=== PATIENT | male | born 1970 | race Caucasian/White ===

== ENCOUNTER 2019-10-09 17:45 | Inpatient (IN) | payer OTHER ==
[~2019-10-09] VITALS: Ht 177.8 cm; Wt 84.1 kg
[2019-10-09 18:52] LABS: BASOPHILS % (AUTO) 0.7 % (0-1); EOSINOPHILS # (AUTO) 0.2 X10'3 (0-0.9); EOSINOPHILS % (AUTO) 4.1 % (0-6); HEMATOCRIT 41.7 % (42.0-52.0); HEMOGLOBIN 14.3 g/dl (14.0-17.9); LYMPHOCYTES # (AUTO) 1.8 X10'3 (1.1-4.8); LYMPHOCYTES % (AUTO) 32.2 % (21-51); MEAN CORPUSCULAR HEMOGLOBIN 30.9 PG (27.0-31.0); MEAN CORPUSCULAR HGB CONC 34.2 g/dL (33.0-36.5); MEAN CORPUSCULAR VOLUME 90.4 FL (78-98); MEAN PLATELET VOLUME 7.2 FL (7.4-10.4); MONOCYTES # (AUTO) 0.4 X10'3 (0-0.9); MONOCYTES % (AUTO) 6.6 % (2-12); NEUTROPHILS # (AUTO) 3.2 X10'3 (1.8-7.7); NEUTROPHILS % (AUTO) 56.4 % (42-75); PLATELET COUNT 278 X10'3 (140-440); RED BLOOD COUNT 4.61 X10'6 (4.70-6.10); RED CELL DISTRIBUTION WIDTH 12.7 % (11.5-14.5); WHITE BLOOD COUNT 5.7 X10'3 (4.5-11.0)
[2019-10-09 19:07] LABS: ALANINE AMINOTRANSFERASE 25 U/L (12-78); ALBUMIN 4.2 G/DL (3.4-5.0); ALBUMIN/GLOBULIN RATIO 1.1 (1.1-1.5); ALKALINE PHOSPHATASE 65 IU/L (46-116); ANION GAP 7 (8-16); ASPARTATE AMINO TRANSFERASE 24 U/L (10-37); BILIRUBIN,TOTAL 0.3 MG/DL (0.1-1.0); BLOOD UREA NITROGEN 16 MG/DL (7-18); BUN/CREATININE RATIO 14.5 (5.4-32.0); CALCIUM 9.6 MG/DL (8.5-10.1); CHLORIDE 103 MMOL/L (99-107); GLUCOSE 95 MG/DL (70-104); POTASSIUM 3.9 MMOL/L (3.5-5.1); SODIUM 137 MMOL/L (135-145); TOTAL PROTEIN 7.9 G/DL (6.4-8.2); eGFR 72 ML/MIN
[2019-10-09] MEDS ORDERED: iohexol 300mg/ml 100ml inj. ONE (20:52)
--- NOTE | 2019-10-09 21:04 | NUR ---
PT TO CT VIA WHEEL CHAIR WITH NETWORKER
[2019-10-09 21:08] LABS: CLARITY,URINE CLEAR (Clear); COLOR,URINE YELLOW (Yellow); GLUCOSE, URINE NEGATIVE (Neg); KETONES,URINE TRACE mg/dl (Neg); LEUKOCYTE ESTERASE ,URINE NEGATIVE (Neg); NITRITES, URINE NEGATIVE (Neg); OCCULT BLOOD,URINE NEGATIVE (Neg); PROTEIN,URINE NEGATIVE (Neg); UROBILINOGEN,URINE 0.2 E.U/dL (0.2-1.0)
[2019-10-09 21:13] LABS: UA COLLECTION TYPE CLN CATCH MIDSTREAM
[2019-10-09] MEDS ORDERED: potassium CL 10mEq/100ml bag 100 ML IV PRN ×2 (22:15)
[2019-10-09] MEDS ORDERED: potassium Cl 20 mEq SR tablet PO PRN ×2 (22:15)
[2019-10-09] MEDS ORDERED: mag hydrox/Alum hydrox/simeth 30ml oral suspension PO PRN (22:15)
[2019-10-09] MEDS ORDERED: ondansetron/PF 4mg/2ml inj IV PRN ×2 (22:15→22:55)
[2019-10-09] MEDS ORDERED: magnesium Cl slow-release 64mg tablet PO PRN (22:15)
[2019-10-09] MEDS ORDERED: magnesium 2GM in 50ml NS 50 ML IV PRN (22:15)
[2019-10-09] MEDS ORDERED: acetaminophen 325mg tablet PO PRN (22:15)
[2019-10-09] MEDS ORDERED: magnesium 4gm in 100ml NS 100 ML IV PRN (22:15)
[2019-10-09] MEDS ORDERED: magnesium hydroxide 30ml (MOM) UD suspension PO PRN (22:15)
[2019-10-09] MEDS: normal saline 1000ml 1,000 ML IV SCH (22:34)
[2019-10-09] MEDS ORDERED: ringers solution, lacted 1,000 ML IV SCH (22:52)
[2019-10-09] MEDS ORDERED: famotidine/PF 10 mg/ml inj IV ONE (22:53)
[2019-10-09] MEDS ORDERED: BUPIVAcaine/PF 2.5 mg/ml (0.25%) 30ml vial ONE (22:53)
[2019-10-09] MEDS ORDERED: morphine 4 MG/ML inj SYRINge IV PRN (22:55)
[2019-10-09] MEDS ORDERED: labetalol 20mg/4ml (5mg/ml) syringe IV PRN (22:55)
[2019-10-09] MEDS ORDERED: meperidine/PF 25mg/ml syringe IV PRN ×2 (22:55)
[2019-10-09] MEDS ORDERED: hydrALAZINE 20mg/ml inj. IV PRN (22:55)
[2019-10-09] MEDS ORDERED: morphine 2 MG/ML inj. syringe IV PRN (22:55)
[2019-10-09] MEDS ORDERED: acetaminophen 1,000mg/100ml IV 100 ML IV PRN (22:55)
[2019-10-09] MEDS ORDERED: proCHLORperazine 10 MG/2 ml inj IV PRN (22:55)
[2019-10-09] MEDS ORDERED: midazolam 2 mg/2 ml injection ONE (22:56)
[2019-10-09] MEDS ORDERED: fentaNYL /PF 50mcg/ml 5ml ampule ONE (22:59)
[2019-10-09] MEDS ORDERED: LIDOcaine 2% 5ml jelly ONE (22:59)
[2019-10-09] MEDS ORDERED: glycopyrrolate 0.2mg/ml inj ONE (23:02)
[2019-10-09] MEDS ORDERED: neostigmine methylsulfate 1 MG/ML 10ml vial ONE (23:02)
[2019-10-09] MEDS ORDERED: sevoflurane 250ml liquid IH ONE (23:02)
[2019-10-09] MEDS ORDERED: dexamethasone sod phosphate 10mg/ml inj ONE (23:02)
--- NOTE | 2019-10-09 23:05 | NUR ---
pt to OR ekg completed prior to leaving floor . SOLUTION SPECIALIST AWARE CONSENT HAS NOT BEEN SIGNED THE SURGON HAS NOT SPOKE TO THE PATIENT.
[2019-10-09] MEDS ORDERED: acetaminophen 1,000mg/100ml IV 100 ML IV ONE (23:08)
[2019-10-09] MEDS ORDERED: rocuronium 10mg/ml inj IV ONE (23:28)
[2019-10-09] MEDS ORDERED: ondansetron/PF 4mg/2ml inj ONE (23:28)
[2019-10-09] MEDS ORDERED: LIDOcaine 1%/PF 5ML 10 MG/ML VIAL ONE (23:28)
[2019-10-09] MEDS ORDERED: ceFOXitin 1000 MG inj ONE ×2 (23:28)
[2019-10-09] MEDS ORDERED: propofol inj 20 ML IV ONE (23:28)
[2019-10-10] VITALS (16 sets, daily range): BP systolic 102–144; BP diastolic 63–102
--- NOTE | 2019-10-10 00:23 | NUR ---
ARRIVED IN PACU VIA GURNEY FROM OR WITH DR RICHARDSON IN ATTENDANCE. REPORT RECEIVED. VS STABLE. PT AWAKE AND TALKING
--- NOTE | 2019-10-10 00:23 | NUR ---
SEE ANSTHESIA RECORD FOR ARRIVAL VS
[2019-10-10] MEDS: meperidine/PF 25mg/ml syringe IV PRN ×2 (00:39→01:05)
--- NOTE | 2019-10-10 00:54 | NUR ---
RESTING AFTER MEDS FOR NAUSEA AND PAIN. VS STABLE
--- NOTE | 2019-10-10 01:13 | NUR ---
TO ROOM. COMFORTABLE, VS STABLE. NURSE IN ROOM TO ACCEPT PT
--- NOTE | 2019-10-10 01:17 | NUR ---
Patient in room ED 11. I have received report from Pacu nurse by telephone and had the opportunity to ask questions and assume patient care.
[2019-10-10] MEDS: morphine 2 MG/ML inj. syringe IV PRN ×2 (02:38→07:50)
[2019-10-10 05:27] LABS: BASOPHILS % (AUTO) 0.2 % (0-1); EOSINOPHILS % (AUTO) 0.3 % (0-6); HEMATOCRIT 37.4 % (42.0-52.0); LYMPHOCYTES # (AUTO) 0.8 X10'3 (1.1-4.8); LYMPHOCYTES % (AUTO) 7.7 % (21-51); MEAN CORPUSCULAR HEMOGLOBIN 31.5 PG (27.0-31.0); MEAN CORPUSCULAR HGB CONC 34.7 g/dL (33.0-36.5); MEAN CORPUSCULAR VOLUME 90.9 FL (78-98); MEAN PLATELET VOLUME 7.4 FL (7.4-10.4); MONOCYTES # (AUTO) 0.3 X10'3 (0-0.9); NEUTROPHILS # (AUTO) 9.6 X10'3 (1.8-7.7); NEUTROPHILS % (AUTO) 88.8 % (42-75); PLATELET COUNT 235 X10'3 (140-440); RED BLOOD COUNT 4.11 X10'6 (4.70-6.10); RED CELL DISTRIBUTION WIDTH 12.5 % (11.5-14.5); WHITE BLOOD COUNT 10.8 X10'3 (4.5-11.0)
[2019-10-10 05:33] LABS: ALANINE AMINOTRANSFERASE 23 U/L (12-78); ALBUMIN 3.4 G/DL (3.4-5.0); ALBUMIN/GLOBULIN RATIO 1.1 (1.1-1.5); ALKALINE PHOSPHATASE 51 IU/L (46-116); ANION GAP 6 (8-16); ASPARTATE AMINO TRANSFERASE 20 U/L (10-37); BILIRUBIN,TOTAL 0.3 MG/DL (0.1-1.0); BLOOD UREA NITROGEN 14 MG/DL (7-18); BUN/CREATININE RATIO 12.2 (5.4-32.0); CALCIUM 8.5 MG/DL (8.5-10.1); CHLORIDE 105 MMOL/L (99-107); CREATININE 1.15 MG/DL (0.60-1.10); GLUCOSE 115 MG/DL (70-104); MAGNESIUM 1.8 MG/DL (1.5-2.4); SODIUM 140 MMOL/L (135-145); TOTAL PROTEIN 6.5 G/DL (6.4-8.2); eGFR 68 ML/MIN
--- NOTE | 2019-10-10 06:14 | NUR ---
Problems reprioritized. Patient report given, questions answered & plan of care reviewed with mary RUSHING.
--- NOTE | 2019-10-10 06:18 | NUR ---
Patient in room PCU 3010. I have received report from Denise RUSHING and had the opportunity to ask questions and assume patient care.
--- NOTE | 2019-10-10 06:18 | NUR ---
Patient in room PCU 3010. I have received report from Denise RUSHING and had the opportunity to ask questions and assume patient care. Patient was awake during report and no acute distress noted.
[2019-10-10] MEDS: K and/or MAG REPLACEMENT MC SCH ×2 (06:29→20:00)
[2019-10-10] MEDS: normal saline 1000ml 1,000 ML IV SCH ×2 (08:12→11:51)
[2019-10-10] MEDS ORDERED: DICY10CA88 PO (10:42)
[2019-10-10] MEDS ORDERED: GABA-530 PO (10:43)
[2019-10-10] MEDS ORDERED: NORT25CA PO (10:44)
[2019-10-10] MEDS ORDERED: oxyCODONE SR 10mg (sust. release) tab PO PRN (10:55)
[2019-10-10] MEDS ORDERED: dicyclomine 10 MG capsule PO PRN (12:05)
[2019-10-10] MEDS: oxyCODONE IR 5mg (immed. release) tablet PO PRN ×2 (16:23→22:24)
--- NOTE | 2019-10-10 18:00 | NUR ---
Patient in room PCU 3010. I have received report from Batool RUSHING and had the opportunity to ask questions and assume patient care.
--- NOTE | 2019-10-10 18:30 | NUR ---
Problems reprioritized. Patient report given, questions answered & plan of care reviewed with Denise RUSHING.
--- NOTE | 2019-10-10 19:00 | NUR ---
PAGER ID: [phone] MESSAGE: [phone] Gutierrez Kraus: Patient would like to report he has passed gas and wants to know if he can be discharged now. Denise RUSHING [phone]
--- NOTE | 2019-10-10 19:16 | NUR ---
PAGER ID: [phone] MESSAGE: [phone] Gutierrez Kraus: MD Garcia okayed for discharge, patient still on clear liquid diet can it be advanced? Denise RUSHING [phone]
--- NOTE | 2019-10-10 19:30 | NUR ---
Discharge in AM MD Salvador stated she did not discharge at overnight cashier and may advance diet.
[2019-10-10] MEDS ORDERED: nortriptyline 25mg capsule PO SCH (21:00)
[2019-10-10] MEDS ORDERED: dicyclomine 10 MG capsule PO SCH (21:00)
[2019-10-10] MEDS: gabapentin 300mg capsule PO SCH (21:03)
[2019-10-11 02:00] VITALS: BP 112/64
[2019-10-11] MEDS: normal saline 1000ml 1,000 ML IV SCH (04:12)
[2019-10-11] MEDS: oxyCODONE IR 5mg (immed. release) tablet PO PRN (04:51)
[2019-10-11 06:05] LABS: BASOPHILS % (AUTO) 0.6 % (0-1); EOSINOPHILS # (AUTO) 0.3 X10'3 (0-0.9); EOSINOPHILS % (AUTO) 4.8 % (0-6); HEMATOCRIT 37.5 % (42.0-52.0); LYMPHOCYTES % (AUTO) 32.1 % (21-51); MEAN CORPUSCULAR HEMOGLOBIN 31.2 PG (27.0-31.0); MEAN CORPUSCULAR HGB CONC 34.6 g/dL (33.0-36.5); MEAN CORPUSCULAR VOLUME 90.1 FL (78-98); MEAN PLATELET VOLUME 7.2 FL (7.4-10.4); MONOCYTES # (AUTO) 0.5 X10'3 (0-0.9); MONOCYTES % (AUTO) 7.6 % (2-12); NEUTROPHILS # (AUTO) 3.5 X10'3 (1.8-7.7); NEUTROPHILS % (AUTO) 54.9 % (42-75); PLATELET COUNT 260 X10'3 (140-440); RED BLOOD COUNT 4.16 X10'6 (4.70-6.10); RED CELL DISTRIBUTION WIDTH 12.6 % (11.5-14.5); WHITE BLOOD COUNT 6.4 X10'3 (4.5-11.0)
[2019-10-11 06:19] LABS: ALANINE AMINOTRANSFERASE 21 U/L (12-78); ALBUMIN 3.4 G/DL (3.4-5.0); ALBUMIN/GLOBULIN RATIO 1.1 (1.1-1.5); ALKALINE PHOSPHATASE 50 IU/L (46-116); ANION GAP 5 (8-16); ASPARTATE AMINO TRANSFERASE 17 U/L (10-37); BILIRUBIN,TOTAL 0.4 MG/DL (0.1-1.0); BLOOD UREA NITROGEN 6 MG/DL (7-18); BUN/CREATININE RATIO 5.7 (5.4-32.0); CHLORIDE 106 MMOL/L (99-107); CREATININE 1.06 MG/DL (0.60-1.10); GLUCOSE 97 MG/DL (70-104); MAGNESIUM 2.2 MG/DL (1.5-2.4); POTASSIUM 3.9 MMOL/L (3.5-5.1); SODIUM 140 MMOL/L (135-145); TOTAL CARBON DIOXIDE 28.8 MMOL/L (24-32); TOTAL PROTEIN 6.4 G/DL (6.4-8.2); eGFR 75 ML/MIN
--- NOTE | 2019-10-11 06:37 | NUR ---
Patient in room PCU 3010. I have received report from Denise RUSHING and had the opportunity to ask questions and assume patient care.
--- NOTE | 2019-10-11 06:41 | NUR ---
Problems reprioritized. Patient report given, questions answered & plan of care reviewed with Francisco RUSHING.
[2019-10-11 07:00] VITALS: BP 108/69
[2019-10-11] MEDS: K and/or MAG REPLACEMENT MC SCH (08:00)
[2019-10-11] MEDS: gabapentin 300mg capsule PO SCH (08:33)
[2019-10-11] MEDS ORDERED: DICY10CA88 PO (08:54)
[2019-10-11] MEDS ORDERED: HYDR-3973 PO (09:42)
--- NOTE | 2019-10-11 11:41 | NUR ---
Patient stable for discharge per MD order. All discharge information and education reviewed with patient before signing necessary paperwork. IV discontinued with catheter in tact, belongings packed up and sent with patient. Patient picked up by family member in front lobby.
== END 2019-10-11 10:37 | disposition home or self-care (01) | DRG 343 ==
LOC: ER 17:46 → ED HOLD 22:12 → PCU 3S 10-10 01:35
PROVIDERS: ADMIT Family Medicine; ATTEND Family Medicine
PROC: BW211ZZ Computerized Tomography (CT Scan) of Abdomen and Pelvis using Low Osmolar Contrast (ICD-10-PCS; 2019-10-09)
PROC: 0DTJ4ZZ Resection of Appendix, Percutaneous Endoscopic Approach (ICD-10-PCS; principal; 2019-10-10)
DX: K35.80 Unspecified acute appendicitis (principal); F12.90 Cannabis use, unspecified, uncomplicated; D64.9 Anemia, unspecified; Z79.899 Other long term (current) drug therapy
CPT/HCPCS: 99285; Z7506; Z7508; 36415; 74177; 80053; 81003; 83735; 85025; 87081; 93005; A4215; A4314; A4618; A7000; G0378; J0131; J0694; J1100; J2175; J2250; J2270; J2405; J2704; J2710; J3010; J3490; J7030; J7120; Q9967